=== PATIENT | female | born 1930 | race Caucasian/White ===

== ENCOUNTER 2019-08-02 09:16 | Outpatient (CLI) | payer MEDICARE, OTHER | END 2019-08-02 23:59 | disposition home or self-care (01) | LOC: RAD 09:16 | PROVIDERS: ATTEND Family Medicine | DX: R51 Headache (principal); H02.402 Unspecified ptosis of left eyelid; Z87.891 Personal history of nicotine dependence | CPT/HCPCS: 70551 ==